=== PATIENT | male | born 2000 | race African-American/Black ===

== ENCOUNTER 2025-10-04 08:13 | Emergency (ER) | payer SELFPAY ==
[2025-10-04 09:11] LABS: Hematocrit 44.4 % (42.0-52.0); Hemoglobin 15.8 g/dL (14.0-18.0); MDiff Complete? YES; Mean Corpuscular Hemoglobin 31.2 pg (27.0-31.0); Mean Corpuscular Volume 87.7 fl (78.0-98.0); Platelet Count 306 10x3/uL (130-400); Red Blood Cell (RBC) Count 5.07 mill/uL (4.70-6.10); Troponin I Less than 0.010 ng/mL (< 0.028); White Blood Cell (WBC) Count 6.4 10x3/uL (4.8-10.8)
[2025-10-04 09:23] LABS: ALT (SGPT) 75 U/L (Less than 45); AST (SGOT) 35 U/L (11-34); Albumin 4.4 g/dL (3.1-4.5); Alkaline Phosphatase 44 U/L (40-110); Anion Gap 15 mmol/L (10-20); BUN (Urea Nitrogen) 15 mg/dL (8.9-20.6); Bilirubin, Total 0.7 mg/dL (0.3-1.2); CK (CPK) 559 U/L (30-200); Calc. Creatinine Clearance 0 mL/min (70-130); Calcium 9.3 mg/dL (7.8-10.44); Carbon Dioxide 21 mmol/L (22-29); Chloride 108 mmol/L (98-107); Globulin 3.3 g/dL (2.4-3.5); Glucose 98 mg/dL (70-105); Potassium 3.6 mmol/L (3.5-5.1); Sodium 140 mmol/L (136-145)
[2025-10-04 09:44] LABS: Glucose, Urine (Dipstick) Negative (Negative); Leukocyte Negative (Negative); Protein, Urine (Dipstick) 30 mg/dL (Neg-Trace); Specific Gravity, Urine 1.020 (1.005-1.030)
[2025-10-04 09:56] LABS: CAUTI Indications for Culture Alt mental st,lethar; Urine Culture Reflex No No; WBC/HPF 0-3 HPF (0-3)
== END 2025-10-04 11:30 | disposition home or self-care (01) ==
LOC: NAV ERS 08:13
DX: M62.82 Rhabdomyolysis (principal); F17.220 Nicotine dependence, chewing tobacco, uncomplicated
CPT/HCPCS: 80053; 81001; 82550; 84484; 85025; 93005; 94760; 96360; 96361; J7030